=== PATIENT | female | born 1945 | race Caucasian/White ===

== ENCOUNTER 2025-09-05 12:15 | Emergency (ER) | payer MEDICARE, OTHER, SELFPAY ==
[2025-09-05 12:16] VITALS: BP 170/103
--- NOTE | 2025-09-05 13:14 | ED.GENMED ---
History of Present Illness
General
Chief Complaint: Abdominal Pain
Source: patient
Exam Limitations: none
Time Seen by Provider: 09/05/25 13:13
Nursing documentation reviewed up to this point in time: agreed with
History of Present Illness
History of Present Illness:
Note:
CHIEF COMPLAINT(S)
Abdominal pain.
HISTORY OF PRESENT ILLNESS
The patient is an 80-year-old female presenting with abdominal pain that began acutely. She reports that the pain persists despite bowel movements, with no associated vomiting or diarrhea. There is no blood in urine, no dysuria, no fever, and no
vaginal bleeding or discharge. Past colonoscopy results indicated the presence of diverticulosis, hemorrhoids, and a previously identified adenoma. The patient has a history of tenderness in her abdomen. She expresses concern over potential
complications related to her diverticulosis, suspecting possible perforation due to the tenderness described.
PAST MEDICAL AND SURIGICAL HISTORY
The patient has a history of diverticulosis and hemorrhoids. She has had an adenoma identified in the past and underwent a hysterectomy several years ago, retaining her ovaries.
FAMILY HISTORY
The patient has a family history of aneurysms.
ALLERGIES
The patient reports no known drug allergies.
PHYSICAL EXAM
General: Alert, no acute distress.
Skin: Warm, dry.
Head: Normocephalic, atraumatic.
Neck: Supple, trachea midline.
Eye, Ears, Nose, Mouth, and Throat: Oral mucosa moist.
Cardiovascular: Normal peripheral perfusion, No edema.
Respiratory: Respirations are non-labored.
Gastrointestinal: Abdomen nondistended; tenderness noted LLQ.
Back: Normal range of motion, Normal alignment.
Musculoskeletal: Normal ROM, normal strength.
Neurological: Alert and oriented to person, place, time, and situation, No focal neurological deficit observed.
Psychiatric: Cooperative, appropriate mood & affect.
PROBLEM LIST
Acute problems:
- Acute abdominal pain
- Abdominal tenderness
Chronic problems:
- Diverticulosis
- History of adenoma
- Hemorrhoids
PLAN
The patient will undergo a computed tomography (CT) scan to evaluate the abdominal pain and to assess for possible perforation or inflammation related to diverticulosis. If needed, the patient will be provided with medications for pain management.
DIFFERENTIAL DIAGNOSIS
The Differential Diagnosis includes, in no particular order and is not limited to:
- Diverticulitis
- Bowel perforation
- Abdominal aortic aneurysm
- Colorectal cancer
- Appendicitis
- Small bowel obstruction
- Gastroenteritis
- Mesenteric ischemia
- Peptic ulcer disease
- Hernia
Note:
CARE-UPDATE
09/05/25 - 20:24
Patient exhibits mild symptoms but is stable and can be discharged. Treatment plan includes Augmentin. No significant emphasis on any specific area needed.
Disposition:
SUMMARY OF ENCOUNTER
The patient, an 80-year-old female, presented to the emergency department with acute abdominal pain and a history of diverticulosis. A CT scan was conducted, which indicated diverticulitis without any signs of abscess formation or bowel perforation.
Given these CT findings, it was determined there is no present need for hospital admission. Consequently, a treatment plan involving appropriate antibiotics was established.
PLAN
The patient will be treated with amoxicillin-clavulanate (Augmentin) for the diverticulitis. Close monitoring of symptoms will be performed during recovery.
PATIENT EDUCATION AND COUNSELING
The patient was educated on the signs of potential complications such as increased pain, fever, or gastrointestinal symptoms, which should prompt immediate medical attention. She was informed about the importance of adhering to the antibiotic
regimen.
FOLLOW-UP INSTRUCTIONS
The patient is advised to follow up with her primary care provider and a gastroenterology specialist for ongoing management of her diverticulosis and evaluation of diverticulitis.
MEDICATION RECONCILIATION
- Prescription: Amoxicillin-clavulanate (Augmentin) was prescribed for the treatment of diverticulitis.
MEDICAL DECISION MAKING
Number and Complexity of Problems Addressed: Chronic conditions affecting care include diverticulosis. Differential diagnosis considered diverticulitis without signs of abscess or perforation.
Data:
Category 1: Tests and documents - A CT scan was ordered and reviewed.
Risk:
Prescription medication was prescribed (antibiotic treatment with amoxicillin-clavulanate).
DIAGNOSIS
- Diverticulitis without perforation or abscess (ICD-10: K57.32)
Past History
Past History
ED Past Medical History: Hypercholesterolemia
ED Past Surgical History: Gynecological
Phy Exam
Physical Exam
Physical Exam:
.
Course
Orders/Labs/Results
Orders:
Orders
09/05/25 13:30
CT Abd/Pel (IV only)-[facility] only Urgent
Comment:
Reason For Exam: LLQ pain for 2 days, hx diverticulosis, polyps
IV Insert/Care/Rem.- Treatment PRN
09/05/25 13:33
Complete Blood Count/With Diff Urgent
Comprehensive Metabolic Panel Urgent
09/05/25 15:20
Urinalysis Reflex To Culture Urgent
Date Specimen was Collected: 09/05/25
Time Specimen was Collected: 15:18
Urine Microscopic Reflex Cult Urgent
Abnormal Lab Results
09/05/25 09/05/25
13:33 15:20
MCH 32.6 H pg
(27.0-31.0)
Absolute Lymphs (auto) 0.8 L 10^3/uL
(1.2-3.4)
Neutrophils % 79.7 H %
(42.2-75.2)
Lymphocytes % 10.9 L %
(20.5-51.1)
Glucose 104 H mg/dl
(70-99)
Ur Occult Blood Reflex 4+ A
(Negative)
Urine RBC 7-10 A /HPF
(0-2)
Urine Bacteria (Reflex) Few A
(Negative)
09/05/25 13:33
09/05/25 13:33
Vital Signs
Initial and Last Documented VS:
Initial Vital Signs
Temp Pulse Resp BP Pulse Ox
98.5 F 101 18 170/103 99
09/05/25 12:16 09/05/25 12:16 09/05/25 12:16 09/05/25 12:16 09/05/25 12:16
Last Documented Vital Signs
Temp Pulse Resp BP Pulse Ox
98.5 F 82 16 136/79 98
09/05/25 12:16 09/05/25 16:12 09/05/25 16:12 09/05/25 16:12 09/05/25 16:12
*Pulse Oximetry
SaO2: 99
Oxygen Mode of Delivery: Room air
Patient hypoxic: no
*Critical Care Note
Total Time (30-74mins, 75-104mins- exclusive of procedures): Not Applicable
ED Attending Note
-
Portions of this chart may have been created with voice recognition software.� Occasional wrong word or��sound alike� substitutions may have occurred due to the inherent limitations of voice recognition software.
Discharge Plan
Departure
Patient Disposition: Home (Routine Discharge)
Date of Disposition: 09/05/25
Time of Disposition: 16:09
Patient with high blood pressure during this ER visit?: Yes
Condition: Good
Discharge Problem:
Sigmoid diverticulitis
Instructions: Diverticulitis (DC), [place] diet, BLOOD PRESSURE
Prescriptions:
New
amoxicillin-pot clavulanate 875-125 mg tablet
1 tab PO BID Qty: 14 0RF
Referrals:
Fredrick Mendoza MD [Family Provider, Internal Medicine]
Activity Restrictions/Additional Instructions:
Follow up with your arts administrator or manager in 2-4 weeks. Return for any concerns.
Interventions
Interventions:
*Risk Screen - Suicide Last Done: 09/05/25 12:16
*General Assessment Last Done: 09/05/25 13:23
*Neglect/Abuse Screening Last Done: 09/05/25 13:23
*ED- Fall Risk Assessment Last Done: 09/05/25 13:23
*ED COVID-19 Vaccine History Last Done: 09/05/25 13:23
*ED Influenza Vaccine History Last Done: 09/05/25 13:23
*Nursing Disposition Last Done: 09/05/25 16:20
[facility] Assessment Last Done: 09/05/25 13:23
Discharge Date and Time
Discharge Date/Time: 09/05/25 16:31
Print Language: ESTONIAN
[2025-09-05 13:53] LABS: Hematocrit 40.2 % (37.0-47.0); Hemoglobin 13.9 g/dL (12.0-16.0); Mean Corp Hgb Conc. 34.6 g/dL (33.0-37.0); Mean Corpuscular Volume 94.4 fL (81.0-99.0); Nucleated Red Blood Cells % 0 %; Platelet Count 228 10^3/uL (130-400); Red Cell Dist. Width 12.9 % (11.5-14.5)
[2025-09-05 14:11] LABS: ALT (SGPT) 14 U/L (0-35); AST (SGOT) 23 U/L (14-36); Albumin 4.5 g/dl (3.5-5.0); Alkaline Phosphatase 66 U/L (38-126); Blood Urea Nitrogen 16 mg/dl (7-17); Calcium 9.9 mg/dl (8.4-10.2); Carbon Dioxide 25 mmol/L (22-30); Chloride 107 mmol/L (98-107); Glucose 104 mg/dl (70-99); Potassium 4.5 mmol/L (3.5-5.1); Sodium 140 mmol/L (135-145); Total Protein 6.8 g/dl (6.3-8.2); eGFR > 60.00
[2025-09-05 15:28] LABS: Urine Character Clear (Clear)
[2025-09-05 16:07] LABS: Urine Squamous Cell >30 /LPF (Few); Urine White Cell 0-2 /HPF (0-5)
[2025-09-05 16:09] VITALS: BP 136/79
[2025-09-05 16:12] VITALS: BP 136/79
== END 2025-09-05 16:31 | disposition home or self-care (01) ==
LOC: EMR 12:15
PROVIDERS: EMERGENCY PHYSICIAN Emergency Medicine; FAMILY PHYSICIAN Internal Medicine
DX: K57.32 Diverticulitis of large intestine without perforation or abscess without bleeding (principal); E78.00 Pure hypercholesterolemia, unspecified; Z90.710 Acquired absence of both cervix and uterus
CPT/HCPCS: 99284; 74177; 80053; 81003; 81015; 85025; Q9967